=== PATIENT | male | born 1985 | race Two or more races ===

== ENCOUNTER → 2017-01-10 | Outpatient (CLI) | payer OTHER ==
--- NOTE | 2017-01-10 15:33 | REP ---
Clinical: Cough and lower chest/upper abdominal pain . Comparison: None . Technique: PA and lateral. Findings: The mediastinum and cardiac silhouette are normal. The lung solis are clear and without acute consolidation, effusion, or pneumothorax. The skeletal structures are intact and normal. Impression: 1. No acute cardiopulmonary process. Signed by Bj Dunbar MD 01/10/2017 03:25 P
--- NOTE | 2017-01-10 15:33 | REP ---
Clinical: Left lower quadrant pain. Technique: Two supine views of the abdomen and pelvis. Findings: Bowel gas pattern is nonspecific. Skeletal structures are intact. No organomegaly. Calcification in the right veronica pelvis likely phleboliths. Impression: Nonspecific bowel gas pattern. Signed by Bj Dunbar MD 01/10/2017 03:25 P
== END ==
LOC: M LRY 14:58
PROVIDERS: ATTEND Physician Assistant
DX: R05 Cough (principal); R10.32 Left lower quadrant pain
CPT/HCPCS: 71020; 74000; G0463